=== PATIENT | female | born 1980 | race Caucasian/White ===

== ENCOUNTER 2022-08-30 09:25 | Emergency (ER) | payer OTHER, BC ==
[~2022-08-30] VITALS: Ht 165.1 cm; Wt 62.6 kg
--- NOTE | 2022-08-30 09:33 | NUR ---
ER at bedside examining patient.
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
[2022-08-30 09:43] VITALS: BP_SYST 135
--- NOTE | 2022-08-30 09:44 | NUR ---
Dr. Bergeron at bedside. Morphine IV offered for pain. Patient declined. Patient's , who explained he was a "Captain from [employer]," discussed the possibility of fentanyl IV for patient. Patient declined. Dr. Bergeron offered smaller dose of morphine for patient. Patient declined medication. Toradol medication was discussed and patient agreed to trying the medication.
[2022-08-30] MEDS ORDERED: MORPHINE 4 MG INJ. 4 MG/ML VIAL IM ONE (10:00)
--- NOTE | 2022-08-30 10:40 | NUR ---
Asked Dr. Bergeron regarding urine sample. No need for urine at this time.
[2022-08-30] MEDS ORDERED: KETOROLAC TROMETHAMINE 30 MG VIAL IM ONE (10:45)
[2022-08-30] MEDS ORDERED: NAPR-1172 PO (11:22)
[2022-08-30] MEDS ORDERED: SOM350 PO (11:42)
--- NOTE | 2022-08-30 12:10 | NUR ---
Initial discharge paperwork was discussed with patient. Patient and patient's explained, "Why are we only given naproxen for pain?" Patient explained that she would like a muscle relaxer, but did not want to go to her primary care doctor again to request the medication. Dr. Bergeron made aware of patient's concern and both Dr. Bergeron and MARY Bonner went to patient's bedside to listen to patient and patient's concerns.
--- NOTE | 2022-08-30 12:10 | NUR ---
Patient requesting muscle relaxer prior to discharge. Dr. Bergeron informed and spoke with patient. Patient appeared upset regarding having to follow primary care provider for follow up regarding medications. Dr. Bergeron and RN Ha at bedside to listen to patient and patient's concerns. New discharge paperwork printed and given to patient by resource RN. Patient upset that wheelchair was not provided upon discharge. Wheelchair given and patient transported out of hospital. Will continue to monitor.
--- NOTE | 2022-08-30 12:22 | NUR ---
ANNEMARIE Gaona informed and made aware of situation.
[2022-08-30 12:25] VITALS: BP_SYST 134
--- NOTE | 2022-08-30 12:27 | NUR ---
Patient given written and verbal discharge instructions and verbalizes understanding. ER MD discussed with patient the results and treatment provided. Patient in stable condition. ID arm band removed. IV catheter removed intact and dressing applied, no active bleeding. Rx of naprosyn given. Patient educated on pain management and to follow up with PMD. Pain Scale . Opportunity for questions provided and answered. Medication side effect fact sheet provided.
== END 2022-08-30 12:27 | disposition home or self-care (01) ==
LOC: SED 09:25
DX: S60.211A Contusion of right wrist, initial encounter (principal); S70.01XA Contusion of right hip, initial encounter; Z79.899 Other long term (current) drug therapy; V43.52XA Car driver injured in collision with other type car in traffic accident, initial encounter; Y93.89 Activity, other specified; Y92.89 Other specified places as the place of occurrence of the external cause; Y99.8 Other external cause status
CPT/HCPCS: 99284; 71045; 73100; 73502; 81025; 96372; J1885